=== PATIENT | female | born 1970 | race Two or more races ===

== ENCOUNTER 2022-03-23 10:50 | Outpatient (CLI) | payer OTHER ==
[~2022-03-23 10:50] MED LIST: ESSENTIAL DAIL1 EACH PO; OMEGA 3 1,0001 EACH PO; OSTEO BI-FLEX1 EAC1 PO; OSTERA TABLET1 EACH PO; PNEU16DI2; PROBIOTIC1 EAC1 PO; THYROID PO; VIT C-ROSE HIP500 MG PO
== END 2022-03-23 12:00 | disposition home or self-care (01) ==
LOC: ASH CLINIC 10:50
DX: U07.1 COVID-19 (principal)